=== PATIENT | female | born 1940 | race Caucasian/White ===

== ENCOUNTER → 2017-01-17 | Outpatient (CLI) | payer MEDICARE, BC ==
[~2017-01-17] MED LIST: AMLOPIDINE PO; ASPIR-LOW81 MG PO; ASPIRIN E.C. 8181 MG PO; CALCIUM + D 6001 TAB PO; CALCIUM 600MG+D1 TAB PO; CELEBREX 200MG200 MG PO; CENTRUM SILVER1 TA1 PO; CEPHALEXIN500 M1 PO; COMPLETE SENIOR1 TA1 PO; COREG 6.256.25 MG/TA PO; COUMADIN 5MG5 MG/TAB PO; COUMADIN 6MG6 MG/TAB PO; COUMADIN PO; COUMADIN6 MG PO; CRESTOR10 MG PO; DIOVAN PO; DIOVAN320 MG PO; FERROUS SU325 MG/TAB PO; FISH OIL CONC1000 MG PO; FOLIC ACID 40400 MCG PO; FOLIC ACID PO; FOSAMAX 70MG TA70 MG PO; GLUCOSAMINE 50500 MG PO; GLUCOSAMINE PO; IRON324 M1 PO; KEPPRA 500MG500 MG PO; LASIX 40MG TABL40 MG PO; LASIX40 MG PO; LIPITOR 40MG TA40 MG PO; LOVENOX 8080 MG/0.8 SQ; MOTRIN 600600 MG/TAB PO; MOTRIN600 MG PO; MULTI-VITAMIN1 CTB PO; NASACORT OTC NAS; NASONEX SPRAY PO; NORCO 325 MG-7.1 TAB PO; NORVASC 10MG10 MG PO; OMEGA 31000 MG; OMEGA-31000 MG PO; OSCAL 500MG/VI500 MG PO; PRINIVIL10 MG PO; RESTASIS 60VL OU; ROXICODONE 55 MG/TAB PO; RT ADVAIR 228 DISKUS IH; SINGULAIR 110 MG/TAB PO; SYNTHROID0.125 MG PO; SYNTHROID0.125 MG/T PO; TOPROL XL100 MG PO; TOPROL XL50 MG PO; TYLENOL 325MG325 MG PO; VITAMIN C BUFF500 MG PO; VITAMIN C500 MG PO; ZYRTEC 10MG PO; ZYRTEC 10MG10 MG PO; ZYRTEC10 MG PO
== END ==
LOC: MC.RAD 13:00
DX: Z12.31 Encounter for screening mammogram for malignant neoplasm of breast (principal); Z85.3 Personal history of malignant neoplasm of breast

== ENCOUNTER → 2018-01-28 | Outpatient (CLI) | payer MEDICARE, BC | LOC: MC.RAD 10:13 | DX: Z12.31 Encounter for screening mammogram for malignant neoplasm of breast (principal); Z98.890 Other specified postprocedural states; Z85.3 Personal history of malignant neoplasm of breast ==

== ENCOUNTER → 2018-11-19 | Outpatient (CLI) | payer MEDICARE, BC | LOC: COL.RAD 09:15 | DX: M18.12 Unilateral primary osteoarthritis of first carpometacarpal joint, left hand (principal) | CPT/HCPCS: J3301; Q9967 ==

== ENCOUNTER → 2019-01-30 | Outpatient (CLI) | payer MEDICARE, BC | LOC: MC.RAD 13:14 | DX: Z12.31 Encounter for screening mammogram for malignant neoplasm of breast (principal); Z85.3 Personal history of malignant neoplasm of breast ==

== ENCOUNTER → 2019-08-14 | Outpatient (CLI) | payer MEDICARE, BC | LOC: COL.RAD 13:40 | DX: M25.562 Pain in left knee (principal) | CPT/HCPCS: J3301; Q9967 ==

== ENCOUNTER → 2020-02-25 | Outpatient (CLI) | payer MEDICARE, BC | LOC: MC.RAD 16:30 | DX: Z12.31 Encounter for screening mammogram for malignant neoplasm of breast (principal); N64.1 Fat necrosis of breast; Z98.890 Other specified postprocedural states; Z85.3 Personal history of malignant neoplasm of breast ==

== ENCOUNTER 2020-06-12 18:58 | Emergency (ER) | payer MEDICARE, BC ==
[2009-06-30 06:56] VITALS: BP 98/63
[~2020-06-12] VITALS: Ht 162.6 cm; Wt 75.0 kg
[2020-06-12] MEDS ORDERED: CEPHALEXIN500 M1 PO (20:06)
[2020-06-12 20:30] VITALS: BP 148/72; PULSE 84; TEMP 98.3
== END 2020-06-12 20:49 | disposition home or self-care (01) ==
LOC: COL.ER 18:58
DX: S81.812A Laceration without foreign body, left lower leg, initial encounter (principal); I10 Essential (primary) hypertension; E03.9 Hypothyroidism, unspecified; G40.909 Epilepsy, unspecified, not intractable, without status epilepticus; Z88.1 Allergy status to other antibiotic agents; Z79.82 Long term (current) use of aspirin; Z79.890 Hormone replacement therapy; W45.8XXA Other foreign body or object entering through skin, initial encounter; Y92.009 Unspecified place in unspecified non-institutional (private) residence as the place of occurrence of the external cause

== ENCOUNTER → 2020-06-20 | Outpatient (CLI) | payer MEDICARE, BC ==
[2020-06-20 12:10] VITALS: BP 159/72; PULSE 89; TEMP 98.1
== END ==
LOC: COL.ER 11:46
DX: Z48.02 Encounter for removal of sutures (principal)

== ENCOUNTER 2020-11-19 15:59 | Emergency (ER) | payer MEDICARE, BC ==
[2009-06-30 06:56] VITALS: BP 98/63
[~2020-11-19] VITALS: Ht 165.1 cm; Wt 76.4 kg
[2020-11-19 16:19] VITALS: TEMP 97.8
[2020-11-19] MEDS ORDERED: CEPHALEXIN500 M1 PO (18:07)
[2020-11-19 18:30] VITALS: BP 154/70; PULSE 76
== END 2020-11-19 18:30 | disposition home or self-care (01) ==
LOC: COL.ER 15:59
DX: S81.812A Laceration without foreign body, left lower leg, initial encounter (principal); I10 Essential (primary) hypertension; G40.909 Epilepsy, unspecified, not intractable, without status epilepticus; E03.9 Hypothyroidism, unspecified; Z86.718 Personal history of other venous thrombosis and embolism; Z90.710 Acquired absence of both cervix and uterus; Z90.49 Acquired absence of other specified parts of digestive tract; Z88.1 Allergy status to other antibiotic agents; Z88.2 Allergy status to sulfonamides; Z79.01 Long term (current) use of anticoagulants; Z79.82 Long term (current) use of aspirin; Z79.890 Hormone replacement therapy; W22.8XXA Striking against or struck by other objects, initial encounter; Y93.89 Activity, other specified

== ENCOUNTER → 2020-11-29 | Outpatient (CLI) | payer MEDICARE, BC ==
[2020-11-29 09:10] VITALS: BP 157/71; PULSE 72; TEMP 97.5
== END ==
LOC: COL.ER 09:05
DX: Z48.02 Encounter for removal of sutures (principal)

== ENCOUNTER → 2021-03-22 | Outpatient (CLI) | payer MEDICARE, BC | LOC: MC.RAD 02-16 09:15 | DX: Z12.31 Encounter for screening mammogram for malignant neoplasm of breast (principal) ==

== ENCOUNTER 2022-02-02 12:51 | Emergency (ER) | payer MEDICARE, BC ==
[~2022-02-02] VITALS: Ht 167.6 cm; Wt 71.4 kg
[2022-02-02] MEDS ORDERED: CEPHALEXIN500 M1 PO (14:36)
[2022-02-02 15:02] VITALS: BP 146/66; PULSE 78
== END 2022-02-02 15:02 | disposition home or self-care (01) ==
LOC: COL.ER 12:51
DX: S81.812A Laceration without foreign body, left lower leg, initial encounter (principal); Z86.718 Personal history of other venous thrombosis and embolism; Z88.1 Allergy status to other antibiotic agents; Z79.01 Long term (current) use of anticoagulants; W28.XXXA Contact with powered lawn mower, initial encounter; Y93.I9 Activity, other involving external motion

== ENCOUNTER → 2022-03-23 | Outpatient (CLI) | payer MEDICARE, BC | LOC: MC.RAD 13:43 | DX: Z12.31 Encounter for screening mammogram for malignant neoplasm of breast (principal); Z85.3 Personal history of malignant neoplasm of breast ==

== ENCOUNTER → 2023-08-01 | Outpatient (CLI) | payer MEDICARE, BC ==
[~2023-08-01] MED LIST changes: +COREG 3.123.125 MG/T PO; +ELIQUIS 5MG PO; +KEPPRA XR750 MG PO; +NORCO 325 MG-51 TAB PO; +PREDNISONE 5MG5 MG PO; +SYNTHROID0.1 MG/TAB PO; +TRELEGY ELLIPT1 EAC1 IH; +TYLENOL 500MG500 MG PO
== END ==
LOC: COL.RAD 13:02
DX: M19.041 Primary osteoarthritis, right hand (principal); R74.8 Abnormal levels of other serum enzymes
CPT/HCPCS: A9575

== ENCOUNTER 2024-05-27 11:15 | Outpatient (RCR) | payer MEDICARE, BC | END 2024-05-28 | disposition home or self-care (01) | LOC: WSC | DX: M41.50 Other secondary scoliosis, site unspecified (principal); M54.16 Radiculopathy, lumbar region; M48.061 Spinal stenosis, lumbar region without neurogenic claudication; M48.062 Spinal stenosis, lumbar region with neurogenic claudication ==